=== PATIENT | female | born 1960 | race Native Hawaiian/Other Pacific Islander ===

== ENCOUNTER 2017-04-07 18:30 | Emergency (ER) | payer OTHER ==
[~2017-04-07] VITALS: Ht 167.6 cm; Wt 85.7 kg
[~2017-04-07 18:30] MED LIST: CITALOPRAM40 MG PO; DOXYCYCL HYC100 M4 PO; GLUCOPHAGE1000 MG PO; GLYB3TAB PO
[2017-04-07 19:38] LABS: PLATELET COUNT 246 K/uL (152-353)
[2017-04-07 19:47] LABS: POTASSIUM 3.6 mmol/L (3.6-5.2)
[2017-04-07 22:41] VITALS: BP 149/60; TEMP 98.6
== END 2017-04-07 22:42 | disposition home or self-care (01) ==
LOC: ED 18:30
DX: N10 Acute pyelonephritis (principal)
CPT/HCPCS: 80053; 81000; 85027; 87077; 87086; 87088; 87186; 96360; 96372; 99284; J0696; J1885; Q9963